=== PATIENT | female | born 1975 | race Caucasian/White ===

== ENCOUNTER 2017-08-02 05:49 | Emergency (ER) | payer MEDICAID ==
[~2017-08-02] VITALS: Ht 167.6 cm; Wt 82.7 kg
[2017-08-02 05:56] VITALS: Ht 167.6 cm; Wt 82.7 kg
[2017-08-02] MEDS ORDERED: POLY17PO6 PO (06:41)
[2017-08-02] MEDS ORDERED: DOCU-144 PO (06:41)
[2017-08-02] MEDS ORDERED: HYDR25SU23 PR (06:42)
[2017-08-02] MEDS ORDERED: ACET500C5 PO (06:42)
--- NOTE | 2017-08-02 06:53 | ERD ---
ER Documentation Chief Complaint Chief Complaint constipation x 4 days HPI This a 41-year-old female who presented to the emergency department today complaining of constipation for the past 4 days. Patient states that for the past 2 days she has gone to the bathroom but has gone a very small amount. Denies any abdominal pain. States it she has burning in her rectum but not itching. States she has taken milk of magnesia. Denies any fevers or chills, vomiting, diarrhea. Denies any blood in her stool. ROS All systems reviewed and are negative except as per history of present illness. Medications Home Meds Active Scripts Acetaminophen* (Tylophen*) 500 Mg Capsule, 1 CAP PO Q6H Y for PAIN AND OR ELEVATED TEMP, #30 CAP Prov:YOBANY PETERS PA-C 08/02/17 Hydrocortisone Acetate (Anusol-Hc) 25 Mg Supp.rect, 1 SUPP WY BID Y for HEMORROID PAIN/ITCHING, #12 SUPP.RECT Prov:YOBANY PETERS PA-C 08/02/17 Docusate Sodium* (Colace*) 100 Mg Capsule, 100 MG PO TID, #30 CAP Prov:YOBANY PETERS PA-C 08/02/17 Polyethylene Glycol* (Miralax*) 17 Gm Powd.pack, 17 GM PO DAILY, #15 Prov:YOBANY PETERS PA-C 08/02/17 Allergies Allergies: Coded Allergies: No Known Drug Allergies (Verified Allergy, Unknown, 08/02/17) Physical Exam Vitals Vital Signs Date Time Temp Pulse Resp B/P Pulse Ox O2 Delivery O2 Flow Rate FiO2 08/02/17 05:56 98.6 98 20 134/85 100 Physical Exam Const: obese, NAD Head: Atraumatic Eyes: Normal Conjunctiva ENT: Normal External Ears, Nose and Mouth. Neck: Full range of motion..~ No meningismus. Resp: Clear to auscultation bilaterally Cardio: Regular rate and rhythm, no murmurs Abd: Soft, non tender, non distended. Normal bowel sounds : Rectal exam with evidence of external hemorrhoids. No evidence of gross blood. Skin: No petechiae or rashes Back: No midline or flank tenderness Ext: No cyanosis, or edema Neur: Awake and alert Psych: Normal Mood and Affect Procedures/MDM This is a 41-year-old female presents the emergency department today complaining of constipation for the past 4 days and only going a small amount the past 2 days. Patient denies any abdominal pain. Her abdominal exam is benign. She has had no vomiting or fevers. Do not feel that she requires further workup or imaging at this time. She did mention that she has burning in her rectum but no itching. On physical exam patient has evidence of external hemorrhoids. She denies any blood in her stool. Low suspicion for acute surgical abdomen, bowel obstruction, rectal abscess. Patient symptoms at this time is consistent with constipation and steroids. Patient was given a prescription for MiraLAX, Colace, Tylenol and Anusol. At this time the patient is stable for discharge and outpatient management. Patient should follow up with their PCP in the next 1-2 days. They may return to the emergency department sooner for any persistent or worsening of symptoms. Patient understood and agreed with the plan. Departure Diagnosis: Primary Impression: Constipation Constipation type: unspecified constipation type Qualified Code: K59.00 - Constipation, unspecified constipation type Additional Impression: Hemorrhoids Hemorrhoid type: unspecified Qualified Code: K64.9 - Hemorrhoids, unspecified hemorrhoid type Condition: Fair Patient Instructions: Constipation (Adult), Hemorrhoids [facility] Usted se dodd hecho un examen mdico de control que le indica que no est en edwin condicin que requiera tratamiento urgente en el Departamento de Emergencia. Un estudio ms profundo y el tratamiento de rodriguez condicin pueden esperar sin ningn riesgo hasta que usted sea atendida/o en el consultorio de rodriguez mdico o edwin cl [place]. Es responsabilidad suya arreglar edwin mal para el seguimiento del cait. MANEJO DE CONDICIONES NO URGENTES EN EL FUTURO 1) Si usted tiene un mdico de atencin primaria: Usted debera llamar a rodriguez mdico de atencin primaria antes de venir al departamento de emergencia. Despus de las horas de consultorio, rodriguez doctor o rodriguez asociado/a est disponible por telfono. El mdico o enfermero de julian en el servicio telefnico puede asesorarle por ariana medio para atender el problema, o cait contrario se puede programar edwin mal. 2) Si usted no tiene un mdico de atencin primaria: Llame al mdico o clnica de referencia que aparece abajo paulette las horas de consultorio para hacer edwin mal para que le vean. CLINICAS: [facility] [phone] [facility] [phone] [facility] [phone] [place] [phone] [place] [id number] [phone] [facility]. [phone] [address] Additional Instructions: Llame al doctor MAANA y juan edwin MAL PARA DENTRO DE 1-2 SINCLAIR.Dgale a la secretaria que nosotros le instruimos hacer esta mal.Avise o llame si rodriguez condicin se empeora antes de la mal. Regresa aqui si peor o no mejor. Take MiraLAX and Colace as prescribed for constipation. Use Anusol for hemorrhoids. Tylenol if you have any pain YOBANY PETERS PA-C Aug 02, 2017 06:53
== END 2017-08-02 07:33 | disposition home or self-care (01) ==
LOC: FTE 05:49
DX: K59.00 Constipation, unspecified (principal); K64.4 Residual hemorrhoidal skin tags
CPT/HCPCS: 99284